=== PATIENT | female | born 1990 | race Caucasian/White ===

== ENCOUNTER 2016-03-01 18:47 | Emergency (ER) | payer BC, MEDICAID ==
[2016-03-01] MEDS ORDERED: KETOROLAC 60 MG/2 ML VIAL IM STA (21:05)
[2016-03-01] MEDS ORDERED: ONDANSETRON ODT 4 MG TABLET TL STA (21:05)
[2016-03-01] MEDS ORDERED: ONDANSETRON ODT 4 MG TABLET ONE (21:10)
[2016-03-01] MEDS ORDERED: KETOROLAC 60 MG/2 ML VIAL ONE (21:10)
== END 2016-03-01 21:19 | disposition home or self-care (01) ==
DX: B34.9 Viral infection, unspecified (principal)
CPT/HCPCS: 81003; 81025; 99283; Q0162